=== PATIENT | female | born 1960 ===

== ENCOUNTER → 2023-05-10 08:08 | Outpatient (CLI) | payer BC, OTHER, SELFPAY ==
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
== END ==
PROVIDERS: PCP Orthopaedic Surgery; Visit Provider Orthopaedic Surgery
DX: M25.562 Pain in left knee (principal); G89.29 Other chronic pain; M17.12 Unilateral primary osteoarthritis, left knee; M79.89 Other specified soft tissue disorders
CPT/HCPCS: 73721